=== PATIENT | male | born 1990 | race Caucasian/White ===

== ENCOUNTER 2023-08-12 08:44 | Emergency (ER) | payer BC ==
[~2023-08-12] VITALS: Ht 180.3 cm; Wt 68.2 kg
[~2023-08-12 08:44] MED LIST: NORCO 325 MG-51 TAB PO; VOLTAREN 75 DR75 MG PO
[2023-08-12 10:32] LABS: BASO % 0.4 % (0.0-2.0); EOS # 0.1 K/mm3 (0.0-0.7); EOS % 1.2 % (0.0-4.0); GRAN % 79.3 % (42.2-75.2); HEMATOCRIT 40.8 % (42.0-52.0); HEMOGLOBIN 13.7 g/dl (13.5-18.0); LYMPH # 0.9 K/mm3 (1.2-3.4); MEAN CELL VOLUME 85 fl (80.0-100.0); MEAN CORPUSCULAR HEMOGLOBIN 28 pg (27-31); MEAN CORPUSCULAR HGB CONC 34 g/dl (33.0-37.0); MEAN PLATELET VOLUME 8.7 fl (7.4-10.4); MONO # 1.2 K/mm3 (0.1-0.6); MONO % 10.7 % (1.7-9.3); PLATELET COUNT 416 K/mm3 (130-400); RED BLOOD COUNT 4.82 M/mm3 (4.20-5.60); REDCELL DISTRIBUTION WIDTH-CV 12.5 % (11.5-14.5)
[2023-08-12 10:57] LABS: ALBUMIN 3.2 gm/dL (3.5-5.0); BILIRUBIN,TOTAL 0.8 mg/dL (0.2-1.2); C-REACTIVE PROTEIN 12.09 mg/dL (0.00-0.50); CREATININE, serum 0.78 mg/dL (0.72-1.25); POTASSIUM 4.2 mmol/L (3.5-4.5); TOTAL PROTEIN 7.4 gm/dL (6.2-8.1)
[2023-08-12] MEDS ORDERED: NS 1,000 ML IV ONE (11:15)
[2023-08-12] MEDS ORDERED: Ondansetron 4 MG/2 ML VIAL IV ONE (11:30)
[2023-08-12] MEDS ORDERED: Ketorolac 15 MG/ML VIAL IV ONE (11:45)
[2023-08-12] MEDS ORDERED: NS 100 ML IV SCH (13:12)
[2023-08-12] MEDS ORDERED: Iohexol 300 - 100 ML VIAL IV ONE (13:12)
[2023-08-12 15:32] VITALS: BP 137/98; PULSE 67; TEMP 97.4
== END 2023-08-12 15:33 | disposition home or self-care (01) ==
LOC: COL.ER 08:44
PROVIDERS: Nurse Practitioner
DX: K59.00 Constipation, unspecified (principal); R11.2 Nausea with vomiting, unspecified; Z91.148 Patient's other noncompliance with medication regimen for other reason
CPT/HCPCS: J1885; J2405; J7030; Q9967